=== PATIENT | male | born 1985 | race Two or more races ===

== ENCOUNTER 2025-04-16 10:17 | Emergency (ER) | payer MEDICAID, SELFPAY ==
[2025-04-16 10:33] VITALS: BP 138/89; PULSE 92; RESP 18; TEMP 36.7; O2SAT 100; BMI 34.7
--- NOTE | 2025-04-16 10:37 | XR_ITS ---
Examination: CT abdomen and pelvis without contrast. Coronal 3-D reconstructions. Sagittal 2-D reconstructions. Date and time of exam: April 16, 2025, 1144 hours INDICATIONS: No bowel movement beginning 2 days ago CTDI: vol (mGy): 18 DLP: (mGycm): 1391 Technique: Axial images of the abdomen have been obtained, 3 mm slice thickness Intravenous contrast material has not been administered. Low dose protocols were performed. One or more of the following dose reduction techniques were used; automated exposure control, adjustment of the mA and/or KV according to patient size, use of iterative reconstruction technique. Findings: No focal liver or splenic lesions No gallstones No pancreatic mass 15 mm fat-containing left adrenal adenoma Perinephric stranding, no renal or ureteral calculi, no hydronephrosis Normal appendix No bowel obstruction Moderate stool throughout the colon Normal seminal vesicles Transverse prostate dimension 4.8 cm Intact urinary bladder Mild osteopenia Transverse prostate dimension 4.8 cm IMPRESSION: 15 mm fat-containing left adrenal adenoma Perinephric stranding, consider urinary tract infection Normal appendix Moderate stool throughout the colon, no obstruction
--- NOTE | 2025-04-16 10:37 | PD.EDRME ---
Rapid Medical Screening Exam RME Arrival date/time: 04/16/25 10:17 39-year-old male presents emerged from today for complaints of constipation Chief Complaint: General Adult/Misc Complain Vital signs: Vital Signs Temperature 98.1 F 04/16/25 10:33 Pulse Rate 92 04/16/25 10:33 Respiratory Rate 18 04/16/25 10:33 Blood Pressure 138/89 H 04/16/25 10:33 Pulse Oximetry (%) 100 04/16/25 10:33 Oxygen Delivery Method Room Air 04/16/25 10:33 Vital signs reviewed by provider: Yes ED Elopement Note RME Arrival date/time: 04/16/25 10:17 39-year-old male presents to emergency room today for complaint of constipation Chief Complaint: General Adult/Misc Complain Vital signs: Vital Signs Temperature 98.1 F 04/16/25 10:33 Pulse Rate 92 04/16/25 10:33 Respiratory Rate 18 04/16/25 10:33 Blood Pressure 138/89 H 04/16/25 10:33 Pulse Oximetry (%) 100 04/16/25 10:33 Oxygen Delivery Method Room Air 04/16/25 10:33 Vital signs reviewed by provider: Yes RME Narrative: 04/16/25 10:17 39-year-old male presents emergency department today for complaints of constipation History (focused) Onset/Duration of Chief Complaint: 2 days ago Quality/Severity of Chief Complaint: Aching Associated symptoms: Nausea, constipation Relevant PMH/Medications/Allergies: Diabetes Additional pertinent information (positives/negatives): Diabetes, constipation Exam General (appearance, orientation,behavior,distress): Well-appearing Pertinent findings (targeted elements performed): Abdominal pain, constipation MDM rapid assessment performed
[2025-04-16] MEDS: MAGNESIUM CITRATE 300 ML BTL PO (10:51)
[2025-04-16 12:17] LABS: Basophils # (Auto) 0.0 Thou/mm3 (0.0-0.2); Basophils % (Auto) 0 % (0-2.5); Eosinophils # (Auto) 0.0 Thou/mm3 (0.0-0.5); Eosinophils % (Auto) 0 % (0-10); Hematocrit 46.6 % (41.0-53.0); Hemoglobin 15.9 g/dL (13.5-16.0); Immature Granulocytes Auto 0.05 Thou/mm3 (0.00-0.00); Lymphocytes # (Auto) 1.7 Thou/mm3 (1.0-4.8); Lymphocytes % (Auto) 15 % (10-50); Mean Corpuscular HGB Conc 34.1 g/dl (31.0-37.0); Mean Corpuscular Hemoglobin 27.5 pg (25.0-35.0); Mean Corpuscular Volume 81 fL (80-100); Monocytes # (Auto) 0.9 Thou/mm3 (0.0-0.8); Monocytes % (Auto) 8 % (0-12); Neutrophils # (Auto) 8.3 Thou/mm3 (1.8-7.7); Neutrophils % (Auto) 76 % (37-80); Nucleated Red Blood Cell # 0.00 Thou/mm3 (0.00-0.00); Nucleated Red Blood Cell % 0 /100 WBC (0); Platelet Count 216 Thou/mm3 (140-440); RDW Standard Deviation 35.2 fL (35.1-43.9); Red Blood Count 5.79 Miln/mm3 (4.50-5.90); White Blood Count 10.9 Thou/mm3 (3.8-10.6)
[2025-04-16 12:30] LABS: Alanine Aminotransferase 12 U/L (10-49); Albumin, Serum 4.8 gm/dL (3.5-5.0); Albumin/Globulin Ratio 1.8 (1.2-2.2); Alkaline Phosphatase 131 U/L (46-116); Anion Gap 9 (7-16); Aspartate Amino Transferase 12 U/L (0-34); BUN/Creatinine Ratio 11 Ratio (12-20); Bilirubin,Total 0.7 mg/dL (0.3-1.2); Blood Urea Nitrogen 10 mg/dL (9-23); Calcium 9.7 mg/dL (8.3-10.6); Calcium (Corrected) 9.7 mg/dL (8.5-10.1); Carbon Dioxide 28.3 mMol/L (20.0-31.0); Chloride 98 mMol/L (98-107); Creatinine (Component) 0.9 mg/dL (0.6-1.3); Estimated Creatinine Clearance 158.6 mL/min (>60); Globulin 2.6 gm/dL (2.3-3.5); Glucose 317 mg/dL (74-106); Lipase 35 U/L (12-53); Osmolality,Calculated 281 (275-295); Potassium 4.8 mMol/L (3.4-5.1); Sodium 135 mMol/L (136-145); Total Protein 7.4 gm/dL (5.7-8.2); eGFR > 60 See Note
--- NOTE | 2025-04-16 14:10 | EDNOTE_ITS ---
ED General RME/HPI General Chief complaint: General Adult/Misc Complain Stated complaint: NO BM X2 DAYS Time Seen by Provider: 04/16/25 14:08 Arrival date/time: 04/16/25 10:17 39-year-old male presents to the emergency department today stating he has not had a bowel movement in 2 days patient reports he tried an at home suppository without relief patient reports no fever nausea or vomiting but does report significant pain and constipation Limitations: no limitations RME / HPI RME / HPI narrative: 04/16/25 10:17 39-year-old male presents emergency department today for complaints of constipation Related Data Home Medications ?Medication ?Instructions ?Recorded ?Confirmed empagliflozin 12.5 mg-metformin 1 tab PO BID 09/10/19 09/10/19 1,000 mg tablet (Synjardy) sitagliptin phosphate 100 mg 100 mg PO QDAY 09/10/19 0 09/10/19 tablet (Januvia) Allergies Allergy/AdvReac Type Severity Reaction Status Date / Time No Known Allergies Allergy Unknown Verified 04/16/25 10:20 Review of Systems Review of Systems Systems Reviewed: All systems reviewed, normal except as documented Constitutional Constitutional: Reports system reviewed and no additional complaints, except as documented, Denies fever(s) and Denies headache(s) Eyes Eyes: Reports system reviewed and no additional complaints, except as documented and Denies blurry vision ENT Ears, Nose, Mouth, and Throat: Reports system reviewed and no additional complaints, except as documented, Denies headache(s), Denies nasal congestion and Denies nasal discharge Cardiovascular Cardiovascular: Reports system reviewed and no additional complaints, except as documented, Denies chest pain and Denies dyspnea Respiratory Respiratory: Reports system reviewed and no additional complaints, except as documented, Denies chest congestion, Denies cough and Denies dyspnea Gastrointestinal Gastrointestinal: Reports system reviewed and no additional complaints, except as documented, Reports abdominal pain, Reports constipation, Denies diarrhea and Denies dyspepsia Integumentary/Breasts Skin/Breast: Reports system reviewed and no additional complaints, except as documented and Denies rash Neurologic Neurologic: Reports system reviewed and no additional complaints, except as documented, Reports as per HPI and Denies headache(s) Past Medical History Social History SMOKING STATUS: Never smoker ED Exam General Limitations: Present no limitations General appearance: Present alert and in no apparent distress Head Head exam: Present atraumatic, normocephalic and normal inspection Eye Eye exam: Present normal appearance, PERRL and EOMI; Absent conjunctival injection ENT ENT exam: Present normal exam, normal oropharynx and mucous membranes moist Neck Neck exam: Present normal inspection, full ROM and trachea midline Chest Chest inspection: Present normal inspection and symmetric chest wall rise Respiratory Respiratory exam: Present normal lung sounds bilaterally; Absent respiratory distress Cardiovascular Cardiovascular exam: Present regular rate, normal rhythm and normal heart sounds Abdominal Exam Abdominal exam: Present soft and normal bowel sounds; Absent distention, tenderness, guarding, rebound, rigidity, Lira's sign, Rovsing's sign or tenderness at McBurney's Point Abdominal tenderness: Absent RLQ Extremities Exam Extremities exam: Present normal inspection and full ROM Back Exam Back exam: Present normal inspection and full ROM Neurological Exam Neurological exam: Present alert, oriented X3 and CN II-XII intact Psychiatric Psychiatric exam: Present normal affect and normal mood Skin Skin exam: Present warm, dry, intact and normal color Course Quality Measures none Orders Category Date Time Status CT abdomen pelvis wo con Stat Exams 04/16/25 10:37 Completed CBC Stat Lab 04/16/25 11:56 Completed Comprehensive Metabolic Panel Stat Lab 04/16/25 11:56 Completed Lipase Stat Lab 04/16/25 11:56 Completed Magnesium Citrate Liqd [Citrate of Magnesia Liqd] Med 04/16/25 10:37 Discontinued 300 ml PO X1 ONE Vital Signs Vital signs: Vital Signs Temperature 98.1 F 04/16/25 10:33 Pulse Rate 92 04/16/25 10:33 Respiratory Rate 18 04/16/25 10:33 Blood Pressure 138/89 H 04/16/25 10:33 Pulse Oximetry (%) 100 04/16/25 10:33 Oxygen Delivery Method Room Air 04/16/25 10:33 O2 saturation 100% on room air within normal limits Discharge Plan Plan Patient Disposition: HOME (Self Care) Discharge Disposition comment: Stable Prescriptions/Referrals Prescriptions/Med Rec: No Action Januvia 100 mg Tablet 100 mg PO QDAY Synjardy 12.5-1,000 mg Tablet 1 tab PO BID Referrals: Sharif Cheatham PA-C [Primary Care Provider] - 04/17/25 Problem List Clinical Impression: Constipation Patient/Caregiver Discharge Instructions Education Materials: ED Constipation (Adult) Additional Instructions: Please follow up with your primary care doctor in the next 24-48hrs for any worsening symptoms return here immediately Print Language: Urdu Stand Alone Forms: Aurelia Award Info., Work/School Release, Patient Portal Info Letter SABINA/HANSA Supervising Physician SABINA/HANSA Supervising Physician: Dr. sauceda MDM Narrative MDM hospital course (for use when minimal MDM required): 39-year-old male presents to the emergency department today stating he has not had a bowel movement in 2 days patient reports he tried an at home suppository without relief patient reports no fever nausea or vomiting but does report significant pain and constipation On exam patient well-appearing patient does not appear look toxic acute distress Lab work and imaging obtained no acute emergent findings noted Per nursing staff patient states he would like to go home as I gave him a bottle of magnesium citrate and he has been able to have good bowel movements while in the ER Patient discharged home no distress follow primary care doctor next 24 to 48 hours worsening symptoms return immediately Medical Records reviewed [facility] Labs/Rad/Tests considered, not ordered Describe: [facility] Chronic Illness/Social Conditions which may negatively complicate care or outcome(s)-explain: None or not applicable EKG EKG not done Labs Lab(s) Interpretation(s): Reviewed by me Imaging Imaging Interpretation(s): By me Medication Administration(s) Medication Administration History Discontinued Medications Magnesium Citrate (Magnesium Citrate 300 Ml Btl) 300 ml PO X1 ONE Stop: 04/16/25 10:38 Last Admin: 04/16/25 10:51 Dose: 300 ml Documented By: EF Given Diagnosis Diagnoses ruled out and/or further discussions: Constipation
== END 2025-04-16 14:21 | disposition home or self-care (01) ==
PROVIDERS: Nurse Practitioner Primary Care; Emergency Provider Emergency Medicine; PCP Physician Assistant
DX: K59.00 Constipation, unspecified (principal)
CPT/HCPCS: 36415; 74176; 80053; 83690; 85025; 99283; A9270